=== PATIENT | female | born 1965 | race Caucasian/White ===

== ENCOUNTER → 2023-07-30 10:48 | Outpatient (BNVA) | payer OTHER, SELFPAY | PROVIDERS: PCP Nurse Practitioner; Referring Provider Nurse Practitioner; Visit Provider Internal Medicine | DX: E03.8 Other specified hypothyroidism (principal); E06.3 Autoimmune thyroiditis; E55.9 Vitamin D deficiency, unspecified | CPT/HCPCS: 36415; 82306; 84439; 84443 ==

== ENCOUNTER 2023-08-16 13:08 | Outpatient (CLI) | payer OTHER, SELFPAY ==
[2023-08-16 13:51] LABS: Free T4 Free Thyroxine 1.55 ng/dL (0.82-1.77)
== END 2023-08-16 13:09 | disposition home or self-care (01) ==
LOC: LAB 13:09
PROVIDERS: PCP Nurse Practitioner; Visit Provider Internal Medicine
DX: E03.8 Other specified hypothyroidism (principal); E06.3 Autoimmune thyroiditis
CPT/HCPCS: 36415; 84439